=== PATIENT | female | born 1950 | race Hispanic/Latino ===

== ENCOUNTER → 2022-11-15 | Outpatient (CLI) | payer OTHER | END | disposition home or self-care (01) | LOC: RAH 14:22 | PROVIDERS: ATTEND Internal Medicine Cardiovascular Disease | DX: Z13.6 Encounter for screening for cardiovascular disorders (principal) | CPT/HCPCS: 75571 ==

== ENCOUNTER 2025-02-26 09:23 | Day surgery (SDC) | payer MEDICARE ==
[2025-02-24 11:34] LABS: IMMATURE GRANULOCYTE ABSOLUTE 0.01 K/uL (0-1); NUCLEATED RED BLOOD CELLS 0.0 % (0.0-0.19); PLATELET COUNT (AUTO) 247 K/uL (130-400); RED BLOOD CELL COUNT(AUTO) 4.65 MIL/uL (4.00-5.50); RED CELL DISTRIBUTION WIDTH 13.3 % (11.0-15.5); WHITE BLOOD COUNT (AUTO) 6.5 K/uL (4.8-10.8)
[2025-02-24 11:49] LABS: ASPARTATE AMINOTRANSFERASE 38.0 U/L (10-37); CREATININE 0.6 mg/dL (0.5-1.0); GLOMERULAR FILTR. RATE CALC 94.0 mL/min (>90); GLUCOSE,RANDOM 123.0 mg/dL (70-105); INR 1.04 (0.85-1.15); SODIUM SERUM 142.0 mmol/L (136-145); TOTAL PROTEIN, SERUM 7.4 g/dL (6.0-8.3); UREA NITROGEN, BLOOD 14.0 mg/dL (7-18)
[2025-02-24 11:53] VITALS: BP 133/86; PULSE 79; RESP 18; TEMP 97.7
[2025-02-24 11:59] LABS: APPEARANCE,URINE CLEAR (CLEAR); GLUCOSE, URINE (UA) >=1000 mg/dL (NEGATIVE); LEUKOCYTE ESTERASE ,URINE NEGATIVE Leu/uL (NEGATIVE); NITRATE,URINE NEGATIVE (NEGATIVE); OCCULT BLOOD,URINE NEGATIVE (NEGATIVE)
[2025-02-24 12:09] LABS: ADD UA MICROSCOPIC YES
[2025-02-24 12:19] LABS: SQUAMOUS EPITHELIAL CELL,UR RARE /HPF (0-2)
--- NOTE | 2025-02-24 12:32 | EKG ---
[facility] Test Date: 2025-02-24 Test Time: 12:20:47 Pat Name: MONICA HORNE Department: [facility] Room: Gender: F Radiologic Technician: [id number] : 1950 Requested By: DESEAN THAKUR Order Number: [id number] Reading MD: Vania Franco Measurements Intervals [place] Rate: 78 P: 25 NH: 150 QRS: 9 QRSD: 82 T: 44 QT: 389 QTc: 444 Interpretive Statements Sinus rhythm No previous ECG available for comparison Electronically Signed On 02-24-2025 17:16:50 BINGO CLERK by Vania Franco Please click the below link to view image of tracing.
--- NOTE | 2025-02-24 12:39 | HMCIMG ---
STUDY: X-RAY OF THE CHEST, 1 VIEW HISTORY: Preoperative evaluation. TECHNIQUE: Frontal projection of the chest is submitted for interpretation. COMPARISON: None FINDINGS: Pulmonary calero: Lungs are clear with symmetric aeration. No focal infiltrates or nodules. Cardiac silhouette: Cardiomediastinal silhouette is within normal size limits. Unfolding of the aorta is noted. Mediastinum and suleiman: No mediastinal mass or widening. Trachea is midline. Osseous structures: No acute osseous abnormality identified. Miscellaneous: No pleural effusion or pneumothorax. Costophrenic angles are clear. IMPRESSION: * Unfolding of the aorta. * No acute cardiopulmonary abnormality. /[place]
[~2025-02-26] VITALS: Ht 149.9 cm; Wt 58.7 kg
[2025-02-26] VITALS (16 sets, daily range): BP systolic 96–121; BP diastolic 60–83; PULSE 65–79; RESP 15–18; TEMP 97.1–97.7
[~2025-02-26 09:23] MED LIST: ATOR10TA69 PO; CARV3.12 PO; DAPA5TAB PO; NITR0.4T50 SL; OLME20TA68 PO; SEMA3TAB4 PO
[2025-02-26] MEDS ORDERED: 0.9%NACL 1000ML 1,000 ML IV ONE (10:59)
[2025-02-26] MEDS ORDERED: PROMETHAZINE HCL 25 MG/ML 1ML AMPULE IM PRN (12:30)
[2025-02-26] MEDS ORDERED: LIDOCAINE HCL MPF 1% 5ML VIAL ONE (13:00)
[2025-02-26] MEDS ORDERED: MIDAZOLAM HCL 1 MG/ML 2ML VIAL ONE (13:01)
[2025-02-26] MEDS ORDERED: FLUT15.845 NS (13:08)
[2025-02-26] MEDS ORDERED: SUCR1TAB2 PO (13:08)
[2025-02-26] MEDS ORDERED: AZEL137S11 NS (13:08)
[2025-02-26] MEDS ORDERED: OMEP40CA21 PO (13:08)
[2025-02-26] MEDS ORDERED: DICY20TA3 PO (13:08)
[2025-02-26] MEDS ORDERED: METF-444 PO (13:08)
[2025-02-26] MEDS ORDERED: FAMO40TA7 PO (13:08)
[2025-02-26] MEDS ORDERED: GLYCOPYRROLATE 0.2 MG/ML 5 ML VIAL ONE (14:24)
[2025-02-26] MEDS ORDERED: NEOSTIGMINE METHYLSULFATE 1MG/ML IV ONE (14:24)
--- NOTE | 2025-02-26 14:25 | OP ---
Operative Note: DATE OF PROCEDURE: 02/26/25 SURGEON: DESEAN THAKUR MD PREOPERATIVE DIAGNOSIS: ventral hernia POSTOPERATIVE DIAGNOSIS: Recurrent incarcerated 2.5cm ventral hernia not obstructed PROCEDURE: Robotic ventral hernia repair with mesh placement INDICATIONS: Patient with symptomatic ventral hernia DESCRIPTION OF PROCEDURE: Patient is brought to the operating room placed on the operating table in the supine position. Once general endotracheal anesthesia is achieved patient's abdomen is prepped and draped in sterile fashion. We created a small ilda incision in left upper quadrant at Peng's point. Under direct visualization with Optiview went through the abdominal wall and entered the abdominal cavity. And pneumoperitoneum obtained. And then under direct visualization proceeded to introduce other 8 mm trochars one in the right upper quadrant and epigastrium. And then switched out the 5 mm trocar from the left upper quadrant to an 8 mm trocar. We then brought the robot over top of the patient's right flank and proceeded to dock it, We then saw omental adhesions to the abdominal wall we started taking these down with a sharp scissors with cautery. This omentum was incarcerated within the hernia defect. There was three [place] cheese hernia defects at the umbilicus that were joined and one measured measured at 2.5 cm. We then proceeded to introduce an 8 cm mesh that will give us enough overlay. And then with OV lock proceeded to close the defect primarily while the pressure down to 10. Once the defect was completely closed we proceeded to place the mesh and the underlay fashion. And secured it to the abdominal wall using 2 OV lock. And then closed our peritoneal flap to cover the mesh completely. The peritoneal flap was closed with a 2 OV lock as well. No bleeding was observed no injuries noted. The robot is undocked all needles are removed from the abdomen. We removed our trochars. Skin incisions were closed with 4-0 Monocryl running subcuticular fashion and Dermabond. Patient tolerated the procedure well ESTIMATED BLOOD LOSS: 5 cc Devices left in place: Circular mesh 8 cm diameter. See implant report for detail. Anesthesia: General endotracheal Complications: None immediate Specimens removed: None DESEAN THAKUR MD Feb 26, 2025 14:24
== END 2025-02-26 16:00 | disposition home or self-care (01) ==
LOC: DAH 09:23
PROVIDERS: ATTEND Student in an Organized Health Care Education/Training Program
DX: K43.6 Other and unspecified ventral hernia with obstruction, without gangrene (principal); I10 Essential (primary) hypertension; E11.9 Type 2 diabetes mellitus without complications; Z79.01 Long term (current) use of anticoagulants; Z90.49 Acquired absence of other specified parts of digestive tract; Z90.710 Acquired absence of both cervix and uterus; Z98.891 History of uterine scar from previous surgery; Z82.49 Family history of ischemic heart disease and other diseases of the circulatory system; Z83.3 Family history of diabetes mellitus; Z88.1 Allergy status to other antibiotic agents; Z79.899 Other long term (current) drug therapy; Z98.890 Other specified postprocedural states
CPT/HCPCS: 80053; 85025; 85610; 85730; 81001; 36415; 71045; 93005; 64488; 49614; 82948 ×2; J1100; A4223 ×2; A4600; A4663; J7030 ×2; J3010; J0665 ×2; J3490 ×3; J2250; J2704; J2405; J2710; J0690 ×2; A4930; C1781; A4215; A4213; A4222; A4221; A4216